=== PATIENT | female | born 1980 | race Caucasian/White ===

== ENCOUNTER → 2017-04-16 | Outpatient (CLI) | payer BC ==
--- NOTE | ~2017-04-16 | MR148 ---
[facility] A Service of [facility] & [facility] RADIOLOGY TEXT RESULTS PATIENT: DEANDRE HARO LOCATION: [facility] : 84 UNIT #: [id number] AGE: [address]: Jesus Keen MD SEX: F ORDER DR: [id number] [address] [address] [id number] O MR#: [id number] Acc #: [id number] NAME: DEANDRE HARO : 1980 SEX: F STUDY DATE/TIME: 04/16/2017 15:30 UNIT: [facility] ROOM: STUDY DESCRIPTION: MR Orbit Face and or Neck WWo Attending Physician: Jesus Keen M.D. Referring Physician: Jesus Keen M.D. Ordering Physician: Jesus Keen M.D. Primary Care Physician: Chadwick Mcnair M.D. MRI CENTER REPORT This report is preliminary unless electronic signature is present. EXAM MRI of the orbits with and without contrast dated 04/16/2017 COMPARISON MRI of the brain with and without contrast dated 04/16/2017. HISTORY Hypertension. Left optic neuritis with visual changes along the periphery for the last 3 months. FINDINGS Multisequence, multiplanar imaging of the orbits were obtained with and without contrast. 17 mL of MultiHance was administered intravenously. Orbits with the ocular structures are unremarkable. Shapes of the globes of bilateral eyes, lens, extraocular muscles, retrobulbar fat and lacrimal glands are within normal limits. CSF is noted on either side of the optic nerves with normal symmetrical appearing bilateral optic nerves without any abnormal enhancement or nodular mass. The optic chiasm and the prechiasmatic optic nerves do not demonstrate any significant abnormality either. Nasal septum is deviated to the left with an apical spur. Minimal paranasal sinus mucosal thickening is noted with a small left and moderate right nodular peripherally enhancing maxillary sinus nodular thickening. IMPRESSION 1. Orbits and the ocular structures are unremarkable. 2. Optic nerves, optic chiasm and visualized portions of the optic tract do not demonstrate any significant abnormality. 3. Paranasal sinus disease. Small left and moderate right maxillary sinus mucous retention cysts. STS. [facility] A Service of [facility] & [facility] RADIOLOGY TEXT RESULTS PATIENT: DEANDRE HARO LOCATION: [facility] : 84 UNIT #: [id number] AGE: [address]: Jesus Keen MD SEX: F ORDER DR: Dictated by... Maureen Toussaint M.D. THIS IS AN ELECTRONICALLY VERIFIED REPORT Maureen Toussaint M.D. at 04/17/2017 2:15 PM CPR/mjs TD: 04/17/2017 14:03 JOB #: [id number] MRI CENTER REPORT Page 1 of 1
--- NOTE | ~2017-04-16 | MR17 ---
[facility] A Service of [facility] & [facility] RADIOLOGY TEXT RESULTS PATIENT: DEANDRE HARO LOCATION: [facility] : 84 UNIT #: [id number] AGE: [address]: Jesus Keen MD SEX: F ORDER DR: [id number] [address] [address] [id number] O MR#: [id number] Acc #: [id number] NAME: DEANDRE HARO : 1980 SEX: F STUDY DATE/TIME: 04/16/2017 15:30 UNIT: [facility] ROOM: STUDY DESCRIPTION: MR Brain WWo Contrast Attending Physician: Jesus Keen M.D. Referring Physician: Jesus Keen M.D. Ordering Physician: Jesus Keen M.D. Primary Care Physician: Chadwick Mcnair M.D. MRI CENTER REPORT This report is preliminary unless electronic signature is present. EXAM MRI of the brain with and without contrast dated 04/16/17. COMPARISON MRI of the orbits with and without contrast dated 04/16/17. HISTORY Left eye optic neuritis with visual changes in the periphery for the last 3 months. History of hypertension. FINDINGS Multisequence multiplanar imaging of the brain was obtained with and without contrast. Boyd-white junction is preserved. Basal ganglia, brainstem and cerebellar hemispheres are within normal limits. One or two punctate hyperintense T2 foci might be present in the subcortical white matter along the left frontal operculum and adjacent left putamen/external capsule. Vascular flow voids of the major cerebral arteries and dural venous sinuses are not occluded in these thicker slices. Nasal septum is deviated to the left with an apical spur. Small left and moderate right maxillary sinus peripherally enhancing mucous retention cysts are noted. No associated solid enhancing nodules. Orbits with the ocular structures are unremarkable. Mild bilateral mastoid mucosal thickening is seen. Thick slices through the sella with the pituitary gland, pineal region and upper cervical spine are unremarkable. IMPRESSION 1. No acute intracranial abnormality. 2. Suspicious 1 or 2 punctate 1-2 mm nonenhancing hyperintense T2-signal lesions are noted in the left frontal opercular subcortical white matter and in the adjacent left lateral putamen/adjacent external capsule. Nonspecific. STS. [facility] A Service of [facility] & [facility] RADIOLOGY TEXT RESULTS PATIENT: DEANDRE HARO [id number] [birth year] UNIT #: [id number] AGE: [address]: Jesus Keen MD SEX: F ORDER DR: Dictated by... Maureen Toussaint M.D. THIS IS AN ELECTRONICALLY VERIFIED REPORT Maureen Toussaint M.D. at 04/17/2017 2:15 PM CPR/pc TD: 04/17/2017 13:48 JOB #: [id number] MRI CENTER REPORT Page 1 of 1
== END | disposition home or self-care (01) ==
LOC: SMRI 14:41
DX: G93.2 Benign intracranial hypertension (principal); H43.393 Other vitreous opacities, bilateral; J32.4 Chronic pansinusitis
CPT/HCPCS: 70543; 70553; A9581